=== PATIENT | male | born 1990 | race Caucasian/White ===

== ENCOUNTER 2017-11-22 02:28 | Emergency (ER) | payer OTHER ==
[~2017-11-22] VITALS: Ht 190.5 cm; Wt 122.5 kg
--- NOTE | 2017-11-22 02:46 | ED GENERAL ADULT ---
History of Present Illness General Chief Complaint: General Adult Stated Complaint: BLOOD IN STOOL Source: patient Exam Limitations: no limitations Vital Signs & Intake/Output Vital Signs & Intake/Output Vital Signs Date Time Temp Pulse Resp B/P B/P Pulse O2 O2 Flow FiO2 Mean Ox Delivery Rate 11/22 0254 99.6 112 20 145/92 98 Room Air Allergies Coded Allergies: No Known Allergies (11/22/17) Reconcile Medications Hydrocortisone (Proctozone-Hc) 2.5 % CREAM.APPL 1 ALDO AK TID PRN RECTAL PAIN Triage Nurses Notes Reviewed? yes Onset: Gradual Duration: week(s):, waxing and waning Timing: recent history Injury Environment: home Severity: mild Modifying Factors: Improves With: rest. Associated Symptoms: rectalgia HPI: 27 yo gentleman h/o rectal bleeding with benign colonoscopy last year presents with 2-3 weeks of rectal bleeding, with streaks of bright red blood around formed stool, intermittent, without clots. He notes mild rectal pain on occasion, no abdominal pain/nausea/vomiting/fever. He is otherwise well. Past History Travel History Traveled to [place] past 21 day No Medical History Any Pertinent Medical History? see below for history Gastrointestinal: lower GI bleed Surgical History Surgical History: none Family History Hx Contributory? No Review of Systems Review of Systems Constitutional: Reports: no symptoms. EENTM: Reports: no symptoms. Respiratory: Reports: no symptoms. Cardiovascular: Reports: no symptoms. GI: Reports: no symptoms. Genitourinary: Reports: no symptoms. Musculoskeletal: Reports: no symptoms. Skin: Reports: no symptoms. Neurological/Psychological: Reports: no symptoms. Hematologic/Endocrine: Reports: no symptoms. Immunologic/Allergic: Reports: no symptoms. All Other Systems: Reviewed and Negative Physical Exam Physical Exam General Appearance: well developed/nourished, no apparent distress Head: atraumatic, normal appearance Eyes: Bilateral: normal appearance. Ears, Nose, Throat: normal pharynx, normal ENT inspection Neck: normal inspection, supple, full range of motion Respiratory: normal breath sounds, chest non-tender, no respiratory distress Cardiovascular: regular rate/rhythm Gastrointestinal: normal bowel sounds, soft, non-tender, no organomegaly Rectal: rectal tenderness, small amount of dry blood. no hemorrhoids visualized Back: normal inspection Extremities: normal inspection, normal capillary refill, normal range of motion, no edema Core Measures ACS in differential dx? No CVA/TIA Diagnosis: No Sepsis Present: No Sepsis Focused Exam Completed? No Progress Differential Diagnoses I considered the following diagnoses in my evaluation of the patient: rectal bleeding/hemorrhoids/anal fissure vs other. Plan of Care: Orders Procedure Date/time Status COMPREHENSIVE METABOLIC PANEL 11/23 235 Complete CBC WITHOUT DIFFERENTIAL 11/23 235 Complete Laboratory Tests 11/22/17 0300: Anion Gap 12, Estimated GFR > 60, BUN/Creatinine Ratio 20.0, Glucose 105 H, Calcium 8.8, Total Bilirubin 0.8, AST 20, ALT 44, Alkaline Phosphatase 62, Total Protein 7.4, Albumin 4.3, Globulin 3.1, Albumin/Globulin Ratio 1.4, CBC w Diff NO MAN DIFF REQ, RBC 5.42, MCV 80.2, MCH 26.3 L, MCHC 32.8 L, RDW 13.0, MPV 8.0, Gran % 76.4 H, Lymphocytes % 16.5 L, Monocytes % 5.1, Eosinophils % 1.9, Basophils % 0.1, Absolute Granulocytes 6.5, Absolute Lymphocytes 1.4, Absolute Monocytes 0.4, Absolute Eosinophils 0.2, Absolute Basophils 0 Initial ED EKG: none Departure Departure Disposition: HOME OR SELF CARE Condition: Stable Clinical Impression Primary Impression: Anal fissure Secondary Impressions: Rectal bleeding Referrals: Patient Has No Primary Care Dr (PCP/Family) Departure Forms: Customer Survey General Discharge Information Prescriptions: Current Visit Scripts Hydrocortisone (Proctozone-Hc) 1 ALDO AK TID PRN RECTAL PAIN #1 KIT Comments 11/22/17, 4:08.... pt feeling well, no active bleeding in ED... labs benign... 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 Critical Care Note Critical Care Note Critical Care Time: non-applicable
[2017-11-22] MEDS ORDERED: PROCTOZONE-HC30 GM PR (03:10)
[2017-11-22 03:12] LABS: ABSOLUTE BASOPHIL COUNT 0 /CUMM (0.0-0.2); ABSOLUTE EOSINOPHIL COUNT 0.2 /CUMM (0.0-0.7); ABSOLUTE GRANULOCYTE CT 6.5 /CUMM (1.4-6.5); ABSOLUTE LYMPH COUNT 1.4 /CUMM (1.2-3.4); ABSOLUTE MONOCYTE COUNT 0.4 /CUMM (0.10-0.60); BASOPHIL % 0.1 % (0.0-2.0); EOSINOPHIL % 1.9 % (0-5); GRANULOCYTE % 76.4 % (42.2-75.2); HEMATOCRIT 43.4 % (42-52); MEAN CORPUSCULAR HGB 26.3 PG (27.0-31.0); MEAN CORPUSCULAR HGB CONC 32.8 G/DL (33.0-37.0); MEAN CORPUSCULAR VOLUME 80.2 FL (80.0-94.0); PLATELET COUNT 239 /CUMM (130-400); RED BLOOD CELL CT 5.42 /CUMM (4.70-6.10); WHITE BLOOD CELL COUNT 8.5 /CUMM (4.8-10.8)
[2017-11-22 04:14] VITALS: BP 142/85
== END 2017-11-22 04:14 ==
LOC: ERH 02:28
PROVIDERS: Pediatrics
DX: K60.2 Anal fissure, unspecified (principal); K62.5 Hemorrhage of anus and rectum